=== PATIENT | male | born 1990 | race Hispanic/Latino ===

== ENCOUNTER 2019-09-21 20:09 | Emergency (ER) | payer OTHER ==
[2019-09-21] MEDS: IPRATROPIUM/ALBUTEROL 3 ML VIAL NEB ONE (20:56)
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
[2019-09-21] MEDS: FAMOTIDINE 20 MG TAB PO ONE (22:30)
[2019-09-21] MEDS: NITROFURANTOIN MONOHYDRATE MAC 100 MG CAP PO ONE (22:30)
[2019-09-21 22:50] VITALS: BP 136/98; TEMP 98; O2SAT 95
== END 2019-09-21 22:45 ==
LOC: ER 20:09
DX: J45.21 Mild intermittent asthma with (acute) exacerbation (principal); E86.0 Dehydration; N30.90 Cystitis, unspecified without hematuria; F11.10 Opioid abuse, uncomplicated; F15.10 Other stimulant abuse, uncomplicated; F13.10 Sedative, hypnotic or anxiolytic abuse, uncomplicated; F12.10 Cannabis abuse, uncomplicated; K21.9 Gastro-esophageal reflux disease without esophagitis; F32.9 Major depressive disorder, single episode, unspecified; Z87.891 Personal history of nicotine dependence; Z79.899 Other long term (current) drug therapy; V43.92XA Unspecified car occupant injured in collision with other type car in traffic accident, initial encounter; Y92.410 Unspecified street and highway as the place of occurrence of the external cause
CPT/HCPCS: 36415; 71046; 72040; 80053; 80307; 81001; 85025; 87086; 87502; 94640; J7620